=== PATIENT | female | born 1990 | race Caucasian/White ===

== ENCOUNTER 2018-05-24 10:26 | Emergency (ER) | payer OTHER ==
[~2018-05-24] VITALS: Ht 170.2 cm; Wt 54.4 kg
[2018-05-24] MEDS ORDERED: PENICILLIN VK500 M1 PO (10:46)
[2018-05-24] MEDS ORDERED: MEDROLDOSEPACK PO (10:46)
[2018-05-24 10:55] VITALS: BP 117/79
== END 2018-05-24 10:58 | disposition home or self-care (01) ==
LOC: M.ERS 10:26
DX: J02.0 Streptococcal pharyngitis (principal)